=== PATIENT | female | born 1985 | race Caucasian/White ===

== ENCOUNTER 2024-12-17 17:03 | Emergency (ER) | payer OTHER, SELFPAY ==
[2024-12-17 17:05] VITALS: BP 164/96
[2024-12-17 17:26] VITALS: BMI 21.5
[2024-12-17] MEDS: MOTRIN 600 MG PO (18:05)
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
== END 2024-12-17 18:12 | disposition home or self-care (01) ==
LOC: EMR 17:03
PROVIDERS: EMERGENCY PHYSICIAN Student in an Organized Health Care Education/Training Program
DX: T24.211A Burn of second degree of right thigh, initial encounter (principal); X12.XXXA Contact with other hot fluids, initial encounter
CPT/HCPCS: 16020; 99282